=== PATIENT | female | born 1960 | race Caucasian/White ===

== ENCOUNTER → 2024-04-04 10:44 | Outpatient (REF) | payer OTHER, SELFPAY | LOC: RAD 10:44 | PROVIDERS: ATTENDING PHYSICIAN Internal Medicine Cardiovascular Disease; FAMILY PHYSICIAN Family Medicine | DX: R07.9 Chest pain, unspecified (principal); R94.31 Abnormal electrocardiogram [ECG] [EKG] | CPT/HCPCS: 75574; Q9967 ==

== ENCOUNTER 2024-04-04 17:52 | Inpatient (IN) | payer OTHER, SELFPAY ==
[2024-04-04 13:16] VITALS: BP 129/63
[2024-04-04 13:38] VITALS: BP 126/66
[2024-04-04 13:41] LABS: % Basophils 0.9 % (0-2); % Eosinophils 4.7 % (0-6); % Immature Granulocytes 0.3 % (0-0.5); % Lymphocytes 17.5 % (20.5-51.1); % Monocytes 9.3 % (1.7-9.3); % Neutrophils 67.3 % (42.2-75.2); Absolute Basophils 0.1 10^3/uL (0-0.2); Absolute Eosinophils 0.3 10^3/uL (0-0.7); Absolute Lymphocytes 1.2 10^3/uL (1.2-3.4); Absolute Monocytes 0.6 10^3/uL (0.1-0.6); Absolute Neutrophils 4.6 10^3/uL (1.4-6.5); Hematocrit 25.6 % (37.0-47.0); Hemoglobin 7.8 g/dL (12.0-16.0); Mean Corp Hgb Conc. 30.5 g/dL (33.0-37.0); Mean Corpuscular Hgb 21.8 pg (27.0-31.0); Mean Corpuscular Volume 71.5 fL (81.0-99.0); Mean Platelet Volume 9.6 fL (7.4-10.4); Nucleated Red Blood Cells % 0 %; Platelet Count 298 10^3/uL (130-400); Red Blood Cell Count 3.58 10^6/uL (4.20-5.40); Red Cell Dist. Width 18.1 % (11.5-14.5); White Blood Cell Count 6.8 10^3/uL (4.8-10.8)
[2024-04-04 13:43] VITALS: BMI 34.5
[2024-04-04 13:53] LABS: INR 1.02; PT 13.7 Sec (11.4-14.6)
[2024-04-04 13:54] LABS: APTT 25.7 Sec (23.4-35.0)
[2024-04-04 13:57] LABS: ALT (SGPT) 13 U/L (0-35); AST (SGOT) 14 U/L (14-36); Albumin 3.5 g/dl (3.5-5.0); Alkaline Phosphatase 76 U/L (38-126); Blood Urea Nitrogen 15 mg/dl (7-17); Calcium 8.7 mg/dl (8.4-10.2); Carbon Dioxide 28 mmol/L (22-30); Chloride 104 mmol/L (98-107); Estimated Creatinine Clearance 67 ml/min; Glucose 102 mg/dl (70-99); Potassium 4.5 mmol/L (3.5-5.1); Sodium 137 mmol/L (135-145); Total Bilirubin 0.3 mg/dl (0.2-1.3); eGFR > 60.00
--- NOTE | 2024-04-04 13:57 | ED.GENMED ---
History of Present Illness
General
Chief Complaint: Breathing Problem
Source: patient
Time Seen by Provider: 04/04/24 13:39
History of Present Illness
History of Present Illness:
63-year-old female sent to the emergency room from radiology after having a CT of the coronary arteries performed. CT evidently had findings concerning for pulmonary embolism prompting her referral to the emergency room. Patient has been
experiencing shortness of breath with exertion and some chest discomfort over the past few weeks. Symptoms have been worsening. She does at times have pain with deep inspiration. Patient was evaluated by her bicycle mechanic, Dr. Hameed who referred
her for the study. She does not take any anticoagulation. She denies any recent travel or hospital admission. She does experience discomfort in her legs right greater than left. She denies any family history of pulmonary embolism or sudden .
Past History
Past History
ED Past Medical History: HTN, Hypercholesterolemia, NIDDM and Other (Anemia)
Social History
Tobacco: Non-smoker
Family History
Family History: CAD
Phy Exam
Physical Exam
Physical Exam:
General: Awake, Alert, Oriented X3. No acute distress.
Vitals: unremarkable
Head: Atraumatic
Eyes: Pupils equal, EOMI
Throat: Airway intact, no exudates
Neck: Trachea midline
Lungs: Clear and equal b/l
Heart: Regular rate, no murmurs
Abd: Soft, Nontender, No pulsatile mass
Neuro: Nonfocal
Skin: Warm, dry, no rash
Extremities: pulses equal b/l, no edema
Scores
Heart Failure Risk
Heart Failure Risk Score: Not Applicable
Course
Orders/Labs/Results
Orders:
Orders
04/04/24 13:19
Electrocardiogram (*1) Urgent
Reason for Study: Shortness of Breath
EKG- Treatment ONCE
04/04/24 13:23
Complete Blood Count/With Diff Urgent
Comprehensive Metabolic Panel Urgent
Protime/PTT Urgent
Troponin I Urgent
04/04/24 13:48
Echo 2D MMode Color/Doppler Urgent
Reason for Study: Pulmonary Embolism
04/04/24 13:49
US Periph Venous LOWER Ext Joseph Urgent
Comment:
Reason For Exam: b/l leg pain, new PE
04/04/24 14:00
Heparin 7,800 units IV NOW STA
Heparin 12703 Units/250 ml 25,000 units in 250 ml IV PER PROTOCOL
Weight to be used for heparin protocol in kilograms (kg):: 97
Protocol:: DVT/PE
PTT Goal Range to be used:: PTT 73 to 111 seconds
Order type:: Initial
INITIAL Infusion Dose (UNITS/KG/hr) & then follow protocol:: 18 units/kg/hr
Infusion Dose in UNITS/hr & then follow protocol (UNITS/hr):: 1,700
INFUSION RATE in mL/hr & then follow protocol (mL/hr):: 17
For DVT/PE algorithm, re-bolus for low PTT?: Yes
PTT less than or equal to 64 seconds:: Re-bolus 80 units/kg (max 10,000units). Increase by 400 units/hr
(+ 4mL/hr)
PTT 64.1 to 72.9 seconds:: Re-bolus 40 units/kg (max 5,000 units). Increase by 200 units/hr
(+ 2mL/hr)
PTT 73 to 111 seconds:: Target Range. No change in rate.
PTT 111.1 to 130.9 seconds:: Decrease rate by 200 units/hr (- 2 mL/hr)
PTT 131 to 199.9 seconds:: HOLD for 1 hr. Then decrease by 300 units/hr (- 3mL/hr)
PTT greater than or equal to 200 seconds:: HOLD for 2 hrs & Notify Provider. Then decrease by 400 units/hr
(- 4mL/hr)
Lab follow-up:: Each change, PTT q6h until 2 consecutive are therapeutic. Then
PTT daily.
04/04/24 14:02
Type+Screen Urgent
Nursing to Place Non Medication Order As Directed
Physician Order: PTT 6 hours after initial start of Heparin infusion
04/04/24 14:15
ABO2 Urgent
BBK Wristband Number:
Associate notified that ABO2 has been ordered: ATIFF-ER
Date: 04/04/24
Time: 14:16
Armed Security Guard ID: [id number]
04/04/24 14:18
Heparin 7,800 units IV PRN PRN
04/04/24 14:19
Heparin 3,900 units IV PRN PRN
04/04/24 20:30
Protime/PTT Routine
Abnormal Lab Results
04/04/24
13:23
RBC 3.58 L 10^6/uL
(4.20-5.40)
Hgb 7.8 L g/dL
(12.0-16.0)
Hct 25.6 L %
(37.0-47.0)
MCV 71.5 L fL
(81.0-99.0)
MCH 21.8 L pg
(27.0-31.0)
MCHC 30.5 L g/dL
(33.0-37.0)
RDW 18.1 H %
(11.5-14.5)
Lymphocytes % 17.5 L %
(20.5-51.1)
Glucose 102 H mg/dl
(70-99)
Total Protein 6.0 L g/dl
(6.3-8.2)
04/04/24 13:23
04/04/24 13:23
Vital Signs
Initial and Last Documented VS:
Initial Vital Signs
Temp Pulse Resp BP Pulse Ox
97.6 F 67 18 129/63 98
04/04/24 13:16 04/04/24 13:16 04/04/24 13:16 04/04/24 13:16 04/04/24 13:16
Last Documented Vital Signs
Temp Pulse Resp BP Pulse Ox
97.6 F 67 18 129/63 98
04/04/24 13:16 04/04/24 13:16 04/04/24 13:16 04/04/24 13:16 04/04/24 13:16
MDM/Problems Addressed
Differential Diagnosis Includes:
PE, DVT, right heart strain
MDM/Problems Addressed:
Patient presents with shortness of breath on exertion that has been worsening over time. Patient had an outpatient CT coronary angiogram. The preliminary report was called to the patient stating that she has pulmonary embolism. On arrival here to
the emergency the patient hemodynamically stable. She is not hypoxic. She does not appear to have any indication for intervention. IV heparin started. I ordered an echocardiogram and DVT studies. Case discussed with pulmonary who agrees that
the patient would not be a candidate for any intervention and agrees with the plan thus far. Patient's hemoglobin noted to be 7.8. She does have a history of anemia. She denies any melanotic or bloody stools or any other source of bleeding.
*Radiology
Radiology exam reviewed: radiology read reviewed
*Pulse Oximetry
Patient hypoxic: no
*EKG
Interpreted by ED Provider?: Yes
Interpretation: normal
Heart Rate: 67
Rate: normal
Rhythm: sinus
[place]: normal axis
Interval: normal interval
QRS Pattern: normal QRS
Ischemia: no ischemia
*Geography Teacher Interpretation
Rate: normal
Interpretation: normal
Heart Rate: 67
Rhythm: sinus
*Critical Care Note
Total Time (30-74mins, 75-104mins- exclusive of procedures): 32 min
ED Attending Note
-
Portions of this chart may have been created with voice recognition software.� Occasional wrong word or��sound alike� substitutions may have occurred due to the inherent limitations of voice recognition software.
Discharge Plan
Departure
Patient Disposition: Admit
Date of Disposition: 04/04/24
Time of Disposition: 14:17
Admit to: Med/Surg
Presentation/result/management discussed w/ accepting MD/DO: Hospitalist
Condition: Fair
Discharge Problem:
Pulmonary embolism
Prescriptions:
No Action
lamotrigine 150 mg tablet
300 mg PO DAILY
atorvastatin 80 mg tablet
80 mg PO QPM
atenolol 25 mg tablet
25 mg PO DAILY
prochlorperazine maleate 10 mg tablet
10 mg PO TIDPRN PRN (Reason: nausea/vomiting)
hydrocodone-acetaminophen 10-325 mg tablet
1 tab PO Q6HPRN PRN (Reason: moderate pain)
omeprazole 40 mg capsule,delayed release(DR/EC)
40 mg PO BID
zolmitriptan 5 mg tablet
5 mg PO USEASDIRECTD PRN (Reason: headache)
Rx Instructions:
take 1 tablet by mouth AT ONSET OF HEADACHE may repeat in 2 hours
cyproheptadine 4 mg tablet
4 mg PO DAILY
trazodone 150 mg tablet
150 mg PO HS
gabapentin 300 mg capsule
300 mg PO Q12H
montelukast 10 mg tablet
10 mg PO QPM
zolpidem 10 mg tablet
10 mg PO HSPRN PRN (Reason: sleep)
levothyroxine 112 mcg tablet
112 mcg PO DAILY
bupropion HCl 300 mg tablet extended release 24 hr
300 mg PO DAILY
levocetirizine 5 mg tablet
5 mg PO QPM
venlafaxine 225 mg tablet extended release 24hr
225 mg PO DAILY
Mounjaro 12.5 mg/0.5 mL pen injector
12.5 mg SC DE LA TORRE@1800
Referrals:
Darnell Roque, [Family Provider] -
Interventions
Interventions:
*Risk Screen - Suicide Last Done: 04/04/24 13:16
*General Assessment Last Done: 04/04/24 13:16
*Neglect/Abuse Screening Last Done: 04/04/24 13:16
*ED COVID-19 Vaccine History Last Done: 04/04/24 13:16
Discharge Date and Time
Print Language: SAMI
[2024-04-04 14:00] VITALS: BP 108/59
[2024-04-04 14:03] LABS: Troponin I < 0.012 ng/ml
[2024-04-04 14:30] VITALS: BP 115/57
[2024-04-04] MEDS: HEPARIN 25000 UNITS/250 ML IV (14:34)
[2024-04-04] MEDS: HEPARIN 7800 UNITS IV (14:35)
--- NOTE | 2024-04-04 17:43 | HPS.HSE ---
Addendum entered and electronically signed by Dillon Juan MD 04/04/24 22:56:
Attending Addendum-
I performed a history and physical exam of the patient and discussed his management with the resident. I reviewed the resident's note and agree with the documented findings and plan of care CC/HPI- Sent to ED s/p coronary angio ct with saddle PE.
Patient admits to chest heaviness and worsening SOB over a month. Denies fevers palps immobility syncope travel. Full 12 point ROS reviewed and negative except as documented Exam-vitals reviewed in EMR GEN-NAD heart RRR no M/R/G lungs decreased at
bases abd soft LE trace b/l LE edema neg Paez warm well perfused +2 distal pulses
Plan:
# PE/ Right LE DVT
-sPESI-low risk
-echo-. Left ventricle: Normal size and function with an estimated ejection fraction of 55-60% by visual estimation. Mild concentric LVH. Right ventricle: Normal size and function
-LE US- There is nonocclusive deep venous thrombosis in the right popliteal and superficial femoral veins
-CT angio/cardiac-Saddle pulmonary thromboembolus.
-cont heparin gtt monitor ptt
-transition to Eliquis in am loading 10/bid x 7 days then 5/bid
-f/u with kick boxer as OP for full workup due to unprovoked clots and family history
# Iron Deficiency Anemia
- tx for hb < 7
- severe IV iron allergy
# HTN- cont atenolol
# HLD- cont atorva
# Depression- cont buproprion venlafaxine trazodone
# Peripheral Neuropathy- cont gabapentin
# Migraine cont cyproheptadine and lamotrigine
# Hypothyroid- cont levothyroxine
# GERD- cont omeprazole
# Insomnia- cont Ambien
Dispo DC home in am
ACP
Patient consented to discuss, was alone, time spent explanation of advance directives, changes in health status, patient�s health care wishes if the patient becomes unable to make health decisions, goals of care, code status, and prognosis- 16
minutes
Time spent coordinating care, review of plan of care with resident, personally reviewed previous records in EMR, med rec, labs, radiology, d/w nursing, family total time documented is exclusive of any additional time listed that was spent in advance
care planning discussion -� 76 minutes
Original Note:
Family Physician
-
Family Physician: Darnell Roque
Inspector Eyeglass Frames: Dr. Christianson
Chief Complaint
-
Pulmonary emboli detected on outpatient coronary CT scan
History of Present Illness
Patient is a 63-year-old female without prior history of DVT or PE, who is here after outpatient coronary CT angio incidentally detected filling defect in the left and right main pulmonary arteries with a saddle configuration compatible with
thromboembolus. Coronary CT angio was recommended by her motor coach bus driver as part of the workup for recent shortness of breath, which was thought to be possibly cardiac-related. Patient mentions shortness of breath on exertion from about almost a
month ago and having chest discomfort described as heaviness. Chest discomfort is not related to breathing per patient. Also states chronic leg pain from years ago, however, mentions she did notice ankle swelling few days ago. Patient is taking
care of her parents and is physically active.
Most recent surgery was in February 2022 (lumbar fusion). Does not report any long flights/ travels. The most recent flight was to [place] in November which was less than 2 hours. Postmenopausal.
Positive history of DVTs in her mother.
Past medical history: Migraines, neuropathy, postmenopausal flushing, anxiety/depression, iron deficiency anemia, hyperlipidemia, essential hypertension, GERD, hypothyroidism, obesity
Past surgical history: Lumbar fusion surgery (03/16), tonsillectomy (many years ago)
Medical History
Past Medical History
Past Medical History: Reports Other (see HPI)
Additional Past Medical History:
see HPI
Past Surgical History: Reports Other (see HPI)
Additional Past Surgical History:
see HPI
Social History
Tobacco: Non-smoker
Alcohol: None
Drug: None
Personal: Single
Living: With Family (Lives with parents)
Family History
Family History: Other (Positive history of DVT in mother)
Allergies / Home Medications
Allergies reflects when Allergies were last updated in [facility].
Home Medications with original date entered in [facility]
Allergy/Medication List:
Allergies
Allergy/AdvReac Type Severity Reaction Status Date / Time
Penicillins Allergy Unknown Verified 04/04/24 13:19
Sulfa (Sulfonamide Allergy Unknown Verified 04/04/24 13:19
Antibiotics)
Home Medications
atenolol 25 mg tablet 25 mg PO DAILY 04/04/24
atorvastatin 80 mg tablet 80 mg PO QPM 04/04/24
bupropion HCl 300 mg 24 hr tablet, extended release 300 mg PO DAILY 04/04/24
cyproheptadine 4 mg tablet 4 mg PO DAILY 04/04/24
gabapentin 300 mg capsule 300 mg PO Q12H 04/04/24
hydrocodone 10 mg-acetaminophen 325 mg tablet 1 tab PO Q6HPRN PRN moderate pain 04/04/24
lamotrigine 150 mg tablet 300 mg PO DAILY 04/04/24
levocetirizine 5 mg tablet 5 mg PO QPM 04/04/24
levothyroxine 112 mcg tablet 112 mcg PO DAILY 04/04/24
montelukast 10 mg tablet 10 mg PO QPM 04/04/24
omeprazole 40 mg capsule,delayed release 40 mg PO BID 04/04/24
prochlorperazine maleate 10 mg tablet 10 mg PO TIDPRN PRN nausea/vomiting 04/04/24
tirzepatide 12.5 mg/0.5 mL subcutaneous pen injector (Mounjaro) 12.5 mg SC DE LA TORRE@1800 04/04/24
trazodone 150 mg tablet 150 mg PO HS 04/04/24
venlafaxine 225 mg tablet,extended release 24 hr 225 mg PO DAILY 04/04/24
zolmitriptan 5 mg tablet 5 mg PO USEASDIRECTD PRN headache 04/04/24
zolpidem 10 mg tablet 10 mg PO HSPRN PRN sleep 04/04/24
Review of Systems
-
History Source: Patient
A 12 point ROS was completed and negative except as noted: Yes
Constitutional: Denies Fatigue
Respiratory: Reports Trouble Breathing (Mildly dyspneic); Denies Cough or Hemoptysis
Cardiac: Reports Other (Intermittent chest discomfort); Denies Diaphoresis or Palpitations
Physical Exam
Vital Signs
Vital Signs
Temp Pulse Resp BP Pulse Ox
97.6 F 71 18 115/57 96
04/04/24 13:16 04/04/24 17:00 04/04/24 17:00 04/04/24 14:30 04/04/24 17:00
Physical Exam
General: Well Developed, No Apparent Distress and Comfortable
HEENT: NormoCephalic, Anicteric, Moist mucous membranes and Other (Appears pale)
Respiratory: Clear and Non Labored Respirations; No Rales, Rhonchi or Crackles
Cardiac: S1/S2, Regular Rhythm and Peripheral Edema (1+ pitting edema (R>L)); No Tachycardia, Murmur or JVD
GI: Soft, Non Tender, Non Distended and Normal Bowel Sounds
Musculoskeletal: No Clubbing, No Cyanosis, Edema, Left Lower Extremity and Edema, Right Lower Extremity
Skin: Warm and Dry
Neuro: Awake, Alert, Oriented and AO x 3
Psych: Calm
Laboratory Results
-
04/04/24 13:23
04/04/24 13:23
Laboratory Results
PT 13.7 Sec (11.4-14.6) 04/04/24 13:23
INR 1.02 04/04/24 13:23
APTT Cancelled 04/04/24 14:02
Total Bilirubin 0.3 mg/dl (0.2-1.3) 04/04/24 13:23
AST 14 U/L (14-36) 04/04/24 13:23
ALT 13 U/L (0-35) 04/04/24 13:23
Alkaline Phosphatase 76 U/L (38-126) 04/04/24 13:23
Troponin I < 0.012 ng/ml 04/04/24 13:23
Impression/Plan
-
63-year-old male with saddle pulmonary thromboembolus detected on outpatient coronary CT angiogram.
# Unprovoked saddle pulmonary thromboemboli
- CT angiography (04/04): Filling defect in the left and right main pulmonary arteries with a saddle configuration compatible with thromboembolus. Some extension of thrombus into the bilateral lobar branches. No secondary findings to indicate right
heart strain.
-Unprovoked, possibly hereditary hypercoagulability given positive family history
-Hemodynamically stable
-EKG: Normal sinus rhythm, no ST changes
-Echo (04/04):
1. Left ventricle: Normal size and function with an estimated ejection
fraction of 55-60% by visual estimation. Mild concentric LVH.
2. Right ventricle: Normal size and function
3. Mitral valve: Trace mitral regurgitation
4. Aortic valve: Trace aortic insufficiency
5. Tricuspid valve: Trace tricuspid regurgitation with estimated pulmonary
artery systolic pressures of 25-30 mmHg
- Lower extremity ultrasound: There is nonocclusive deep venous thrombosis in the right popliteal and superficial femoral veins
-Troponin negative
-LFT normal
-PESI score: class I , very low risk (0-1.6% of 30-day mortality)
-Heparin drip started in ED
-Admit to telemetry
-Consulted case management regarding Eliquis pricing-will transition from heparin to Eliquis once we have this information
-Maintain SpO2 more than 90% at all times
-Supplemental O2 with SpO2 less than 90
-EKG as needed if patient develops worsening chest pain
-IV fluid if SBP less than 90
-Pulmonary service notified by ED
# History of iron deficiency anemia
-Patient reports receiving IV iron infusion in the past; however she developed hives and discontinued iron treatment
-Patient mentions she has undergone colonoscopy and endoscopy in the past with no evidence of GI bleeding
-Will continue to monitor hemoglobin
-Transfuse blood if Hgb<7
# History of GERD
-Continue omeprazole
# History of migraine
-Continue home meds
# Essential hypertension
-Continue home atenolol
# Hyperlipidemia
-Continue atorvastatin 80
# Hypothyroidism
-Continue home levothyroxine
# Anxiety/depression
-Continue home meds
CODE STATUS
DNR
[2024-04-04] MEDS: NEURONTIN 300 MG PO (19:35)
[2024-04-04] MEDS: PROTONIX 40 MG PO (19:35)
[2024-04-04] MEDS: LIPITOR 80 MG PO (19:35)
[2024-04-04] MEDS: SINGULAIR 10 MG PO (19:35)
[2024-04-04 20:40] VITALS: BP 127/71
[2024-04-04 20:43] VITALS: BMI 32.1
[2024-04-04 22:17] LABS: INR 1.14; PT 14.9 Sec (11.4-14.6)
[2024-04-04 22:33] LABS: APTT > 200 Sec (23.4-35.0)
[2024-04-04] MEDS: DESYREL 150 MG PO (22:44)
[2024-04-04] MEDS: AMBIEN 10 MG PO (23:44)
[2024-04-05 03:38] VITALS: BP 112/55
--- NOTE | 2024-04-05 05:03 | PTCARENOTE ---
Patient arrived on unit @2019 via stretcher from ED, ambulate to bed with standby assist. Patient AAOx3, no c/o pain or discomfort. VS WNL, +1 edema to RLE. Skin assessment completed, call bryant within reach, oriented to unit. Heparin gtt
transfusing, @2240 SPORTS STATISTICIAN made aware of PTT result >200, protocol followed.
[2024-04-05] MEDS: SYNTHROID 112 MCG PO (05:47)
[2024-04-05] MEDS: NEURONTIN 300 MG PO (05:47)
[2024-04-05 06:58] LABS: Hematocrit 26.8 % (37.0-47.0); Hemoglobin 8.2 g/dL (12.0-16.0); Mean Corp Hgb Conc. 30.6 g/dL (33.0-37.0); Mean Corpuscular Hgb 21.5 pg (27.0-31.0); Mean Corpuscular Volume 70.2 fL (81.0-99.0); Mean Platelet Volume 9.4 fL (7.4-10.4); Platelet Count 282 10^3/uL (130-400); Red Blood Cell Count 3.82 10^6/uL (4.20-5.40); Red Cell Dist. Width 18.4 % (11.5-14.5)
[2024-04-05 07:09] LABS: INR 1.06; PT 14.1 Sec (11.4-14.6)
[2024-04-05 07:16] LABS: NT-proBNP 750 pg/ml
[2024-04-05 07:52] VITALS: BP 142/79
[2024-04-05 08:27] LABS: ALT (SGPT) 13 U/L (0-35); AST (SGOT) 15 U/L (14-36); Albumin 3.8 g/dl (3.5-5.0); Alkaline Phosphatase 90 U/L (38-126); Blood Urea Nitrogen 13 mg/dl (7-17); Calcium 9.1 mg/dl (8.4-10.2); Carbon Dioxide 24 mmol/L (22-30); Chloride 106 mmol/L (98-107); Estimated Creatinine Clearance 71 ml/min; Glucose 99 mg/dl (70-99); Sodium 139 mmol/L (135-145); Total Bilirubin 0.6 mg/dl (0.2-1.3); Total Protein 6.2 g/dl (6.3-8.2); eGFR > 60.00
[2024-04-05] MEDS: TENORMIN 25 MG PO ×2 (09:17→09:22)
[2024-04-05] MEDS: WELLBUTRIN XL (24 hour extended release) 300 MG PO (09:17)
[2024-04-05] MEDS: PERIACTIN 4 MG PO (09:17)
[2024-04-05] MEDS: ELIQUIS 10 MG PO (09:21)
[2024-04-05] MEDS: PROTONIX 40 MG PO (09:22)
[2024-04-05] MEDS: LAMICTAL 300 MG PO (09:22)
[2024-04-05] MEDS: EFFEXOR XR 225 MG PO (09:22)
[2024-04-05 11:45] VITALS: BP 130/62
--- NOTE | 2024-04-05 15:03 | CM ---
Alert awake oriented patient who lives with her parents.She is health care marketing manager of parents. They live in an apartment with with elevator.
She is independent in driving and in all activities of daily living.Offered VN she declined.Checked butler of Eliquis =$13.00 MD notified. Pt given Eliquis coupon.
No adaptive devices
Never had VN/[facility]
Pharmacy [facility]
PCP Dr Roque
PLAN Home no needs
[2024-04-05 15:24] VITALS: BP 124/60
--- NOTE | 2024-04-05 16:06 | W.PN.HOSP.TC ---
Addendum entered and electronically signed by Dillon Juan MD 04/05/24 22:57:
Attending Addendum-
I saw and evaluated the patient. I reviewed the resident�s note and agree with findings and plan as documented in the resident�s note SUB: had episode of cheast haviness last PM resolved on its own. no further episodes. No palps SOB resolved. Full
12 point ROS reviewed and negative except as documented Exam-vitals reviewed in EMR GEN-NAD heart RRR no M/R/G lungs decreased at bases abd soft LE trace b/l LE edema neg Paez warm well perfused +2 distal pulses
Plan:
# PE/ Right LE DVT
-sPESI-low risk
-echo-. Left ventricle: Normal size and function with an estimated ejection fraction of 55-60% by visual estimation. Mild concentric LVH. Right ventricle: Normal size and function
-LE US- There is nonocclusive deep venous thrombosis in the right popliteal and superficial femoral veins
-CT angio/cardiac-Saddle pulmonary thromboembolus.
-transition hep gtt to Eliquis
-f/u with physics instructor as OP for full workup due to unprovoked clots and family history
# Iron Deficiency Anemia
- tx for hb < 7
- severe IV iron allergy
# HTN- cont atenolol
# HLD- cont atorva
# Depression- cont buproprion venlafaxine trazodone
# Peripheral Neuropathy- cont gabapentin
# Migraine cont cyproheptadine and lamotrigine
# Hypothyroid- cont levothyroxine
# GERD- cont omeprazole
# Insomnia- cont Ambien
Dispo DC home in am
Time spent coordinating care, DC planning, review of DC plan of care with resident, transition of care, review of records, med rec/scripts sent electronically, consults, notes, d/w consultants, nursing, family, and CM eliquis priced� 32 mins
Original Note:
Today's Communication/Plan
-
Discharge to home on Eliquis
10 mg twice daily for the first 5 days
5 mg twice daily for the next 3 months
Assessment / Plan
Assessment / Plan
63-year-old male with saddle pulmonary thromboembolus detected on outpatient coronary CT angiogram.
# Unprovoked saddle pulmonary thromboemboli
- CT angiography (04/04): Filling defect in the left and right main pulmonary arteries with a saddle configuration compatible with thromboembolus. Some extension of thrombus into the bilateral lobar branches. No secondary findings to indicate right
heart strain.
-Unprovoked, possibly hereditary hypercoagulability given positive family history
-Hemodynamically stable
-EKG: Normal sinus rhythm, no ST changes
-Echo (04/04):
1. Left ventricle: Normal size and function with an estimated ejection
fraction of 55-60% by visual estimation. Mild concentric LVH.
2. Right ventricle: Normal size and function
3. Mitral valve: Trace mitral regurgitation
4. Aortic valve: Trace aortic insufficiency
5. Tricuspid valve: Trace tricuspid regurgitation with estimated pulmonary
artery systolic pressures of 25-30 mmHg
- Lower extremity ultrasound: There is nonocclusive deep venous thrombosis in the right popliteal and superficial femoral veins
-Troponin negative
-LFT normal
-PESI score: class I , very low risk (0-1.6% of 30-day mortality)
-Heparin drip started in ED
-Consulted case management regarding Eliquis pricing-cost is $13 every month
-Patient was started on Eliquis 10mg BID this morning-will need to continue for another 3 months after discharge
-Supplemental O2 with SpO2 less than 90
-EKG as needed if patient develops worsening chest pain
-IV fluid if SBP less than 90
-Pulmonary service notified by ED
# History of iron deficiency anemia
-Patient reports receiving IV iron infusion in the past; however she developed hives and discontinued iron treatment
-Patient mentions she has undergone colonoscopy and endoscopy in the past with no evidence of GI bleeding
-Improving - Will continue to monitor hemoglobin
-Transfuse blood if Hgb<7
# History of GERD
-Continue omeprazole
# History of migraine
-Continue home meds
# Essential hypertension
-Continue home atenolol
# Hyperlipidemia
-Continue atorvastatin 80
# Hypothyroidism
-Continue home levothyroxine
# Anxiety/depression
-Continue home meds
CODE STATUS
DNR
Vitals have been stable for the past 24 hours. Patient is medically stable for discharge on Eliis.
Anticipated Discharge: Today
Subjective/Interval History
-
Date of Service: April 05, 2024
Reports short interval of chest heaviness that quickly resolved after changing positions and rolling in bed.
Did not become short of breath. Vitals remained stable throughout the night and this morning. Does not offer any complaints.
Objective Data
-
Labs:
Laboratory Results
04/05/24 04/05/24
06:45 06:45
WBC 7.0
Hgb 8.2 L
Hct 26.8 L
Plt Count 282
PT 14.1
INR 1.06
APTT 60.0 H Pending
Sodium 139
Potassium 4.0
Chloride 106
Carbon Dioxide 24
BUN 13
Creatinine 0.9
Glucose 99
Calcium 9.1
Total Bilirubin 0.6
AST 15
ALT 13
Alkaline Phosphatase 90
Vital Signs:
Vital Signs
Temp Pulse Resp BP Pulse Ox
98.8 F 74 16 124/60 95
04/05/24 15:24 04/05/24 15:24 04/05/24 15:24 04/05/24 15:24 04/05/24 15:24
Review of Systems
-
History Source: Patient
All other systems: Reviewed and negative
Respiratory: Denies Trouble Breathing
Cardiac: Reports Other (Reports chest heaviness for very short interval last night-did not become short of breath-chest pain resolved after rolling in bed and changing positions); Denies Chest Pain, Palpitations or Orthopnea
Physical Exam
-
General: Well Developed, No Apparent Distress and Comfortable
HEENT: Normocephalic, Atraumatic and Moist Mucous Membranes
Respiratory: Clear to Auscultation and Non Labored Respirations
Cardiac: Regular Rhythm and S1/S2; Negative Murmur, Rub, Calf Tenderness or Gallop
GI: Soft, Nontender, Nondistended and Normal Bowel Sounds; Negative Organomegaly
Musculoskeletal: No Clubbing, No Cyanosis and Edema, Right Lower Extrem (1+ pitting edema )
Skin: Negative Rash
Neuro: Nonfocal/Grossly Intact
Psych: Calm
--- NOTE | 2024-04-05 17:45 | W.DCSUMMARY ---
Addendum entered and electronically signed by Dillon Juan MD 04/05/24 22:58:
Read, reviewed, and agree. See same day progress note for additional details.
Delfino Juan MD
Original Note:
Documented by User: Pastor Garcia MD, Resident 04/05/24 18:05
Discharge Summary
Discharge Data
Date of Admission: 04/04/24
Date of Discharge: 04/05/24
-
Pending Results: No
Hospital Course
Discharging Physician : Dr. Juan
Disposition : Home
Primary care physician : Darnell Roque
Principal Discharge diagnosis : RLE DVT, saddle pulmonary thromboemboli
Chronic Discharge diagnosis : Iron deficiency anemia, GERD, Essential hypertension, Hyperlipidemia, Hypothyroidism, Anxiety/depression, Migraine
Hospital Course : Patient is a 63-year-old female without prior history of DVT or PE, who was referred to ED after outpatient coronary CT angio incidentally detected filling defect in the left and right main pulmonary arteries with a saddle
configuration compatible with thromboembolus. Coronary CT angio was recommended by her homebound teacher as part of the workup for recent shortness of breath, which was thought to be more likely cardiac-related. Patient mentioned shortness of breath on
exertion from about almost a month ago and having chest discomfort described as heaviness. Also stated chronic leg pain from years ago, however, mentioned she did notice right ankle swelling few days before admission. Most recent surgery was in
February 2022 (lumbar fusion) and there was no history of long flights/ travels. She is postmenopausal and was not taking contraceptive pills. Physically active. Positive history of DVTs in her mother.
Patient was hemodynamically stable in ED. Troponin was negative and LFTs normal. She was immediately started on heparin drip. EKG unremarkable with normal sinus rhythm. Echo was done while in ED and did not show any signs of right heart strain
with normal EF and pulmonary systolic pressure. Also, lower extremity ultrasound was done in ED which showed nonocclusive deep venous thrombosis in the right popliteal and superficial femoral vein. Based on PESI score, patient had 0-1.6% of 30-day
mortality. Patient was admitted to telemetry. Heparin drip was transitioned to Eliquis next morning at 8:30 AM. Case management was consulted regarding pricing of Eliquis.
Chronic conditions were managed as prior to admission.
Today, patient is medically stable for discharge. Eliquis butler is reasonable for patient. She has been advised to take Eliquis 10 mg twice daily for the next 5 days with the next dose being at 8:30 PM today and to take Eliquis 5 mg twice daily
for the next 3 months, thereafter.
Important imaging findings :
Cardiac CT Angiography (04/04)
Filling defect in the left and right main pulmonary arteries with a saddle configuration compatible with thromboembolus. Some extension of thrombus into the bilateral lobar branches. No secondary findings to indicate right heart strain. Mild
bilateral subsegmental atelectasis. The imaged lungs are otherwise clear. The central airways are patent.
Minimal calcified plaque ostial and mid LAD.
Moderate mid and moderate to severe distal plaques in the LAD.
Minimal proximal calcified plaque in the diagonal branch.
Calcium score of 239.81 consistent with moderate plaque burden.
US Periph Venous LOWER Ext Joseph (04/04)
There is nonocclusive deep venous thrombosis in the right popliteal and superficial femoral veins
Echo (04/04):
1. Left ventricle: Normal size and function with an estimated ejection
fraction of 55-60% by visual estimation. Mild concentric LVH.
2. Right ventricle: Normal size and function
3. Mitral valve: Trace mitral regurgitation
4. Aortic valve: Trace aortic insufficiency
5. Tricuspid valve: Trace tricuspid regurgitation with estimated pulmonary
artery systolic pressures of 25-30 mmHg
Discharge Plan
-
Patient Disposition: Home (Routine Discharge)
Discharge Diagnosis/Procedures: RLE DVT, saddle pulmonary thromboemboli
Condition: Good
Diet: As tolerated, Regular and Low Sodium
Activity: As tolerated
Additional Activity: Encourage being ambulatory
Driving Restrictions: As prior to admission
Bathing Restrictions: None
Instructions: Pulmonary embolism - Discharge instructions
Referrals:
Darnell Roque, DO [Family Provider] - in less than 1 week
Prescriptions:
New
Eliquis 5 mg tablet
10 mg PO BID 5 Days Qty: 18 0RF
Rx Instructions:
10mg every 12hours for first 5 days. Next dose is 8:30pm.
Eliquis 5 mg tablet
5 mg PO BID 30 Days Qty: 60 0RF
Rx Instructions:
On day 6, take 5mg every 12 hours for another 3 months.
Continued
lamotrigine 150 mg tablet
300 mg PO DAILY
atorvastatin 80 mg tablet
80 mg PO QPM
atenolol 25 mg tablet
25 mg PO DAILY
prochlorperazine maleate 10 mg tablet
10 mg PO TIDPRN PRN (Reason: nausea/vomiting)
hydrocodone-acetaminophen 10-325 mg tablet
1 tab PO Q6HPRN PRN (Reason: moderate pain)
omeprazole 40 mg capsule,delayed release(DR/EC)
40 mg PO BID
zolmitriptan 5 mg tablet
5 mg PO USEASDIRECTD PRN (Reason: headache)
Rx Instructions:
take 1 tablet by mouth AT ONSET OF HEADACHE may repeat in 2 hours
cyproheptadine 4 mg tablet
4 mg PO DAILY
trazodone 150 mg tablet
150 mg PO HS
gabapentin 300 mg capsule
300 mg PO Q12H
montelukast 10 mg tablet
10 mg PO QPM
zolpidem 10 mg tablet
10 mg PO HSPRN PRN (Reason: sleep)
levothyroxine 112 mcg tablet
112 mcg PO DAILY
bupropion HCl 300 mg tablet extended release 24 hr
300 mg PO DAILY
levocetirizine 5 mg tablet
5 mg PO QPM
venlafaxine 225 mg tablet extended release 24hr
225 mg PO DAILY
Mounjaro 12.5 mg/0.5 mL pen injector
12.5 mg SC DE LA TORRE@1800
Discharge Orders:
Discharge Patient (As Directed); Ordered 04/05/24
Ordered By: Pastor Garcia
Discharge Date and Time
Discharge Date/Time: 04/05/24 15:49
Print Language: STATELESS

Documented by User: Dillon Juan MD 04/05/24 22:54
Discharge Summary
Discharge Data
Date of Admission: 04/04/24
Date of Discharge: 04/05/24
Discharge Plan
-
Patient Disposition: Home (Routine Discharge)
Discharge Diagnosis/Procedures: RLE DVT, saddle pulmonary thromboemboli
Condition: Good
Diet: As tolerated, Regular and Low Sodium
Activity: As tolerated
Additional Activity: Encourage being ambulatory
Driving Restrictions: As prior to admission
Bathing Restrictions: None
Instructions: Pulmonary embolism - Discharge instructions
Referrals:
Darnell Roque, [Family Provider] - in less than 1 week
Prescriptions:
New
Eliquis 5 mg tablet
10 mg PO BID 5 Days Qty: 18 0RF
Rx Instructions:
10mg every 12hours for first 5 days. Next dose is 8:30pm.
Eliquis 5 mg tablet
5 mg PO BID 30 Days Qty: 60 0RF
Rx Instructions:
On day 6, take 5mg every 12 hours for another 3 months.
Continued
lamotrigine 150 mg tablet
300 mg PO DAILY
atorvastatin 80 mg tablet
80 mg PO QPM
atenolol 25 mg tablet
25 mg PO DAILY
prochlorperazine maleate 10 mg tablet
10 mg PO TIDPRN PRN (Reason: nausea/vomiting)
hydrocodone-acetaminophen 10-325 mg tablet
1 tab PO Q6HPRN PRN (Reason: moderate pain)
omeprazole 40 mg capsule,delayed release(DR/EC)
40 mg PO BID
zolmitriptan 5 mg tablet
5 mg PO USEASDIRECTD PRN (Reason: headache)
Rx Instructions:
take 1 tablet by mouth AT ONSET OF HEADACHE may repeat in 2 hours
cyproheptadine 4 mg tablet
4 mg PO DAILY
trazodone 150 mg tablet
150 mg PO HS
gabapentin 300 mg capsule
300 mg PO Q12H
montelukast 10 mg tablet
10 mg PO QPM
zolpidem 10 mg tablet
10 mg PO HSPRN PRN (Reason: sleep)
levothyroxine 112 mcg tablet
112 mcg PO DAILY
bupropion HCl 300 mg tablet extended release 24 hr
300 mg PO DAILY
levocetirizine 5 mg tablet
5 mg PO QPM
venlafaxine 225 mg tablet extended release 24hr
225 mg PO DAILY
Mounjaro 12.5 mg/0.5 mL pen injector
12.5 mg SC DE LA TORRE@1800
Discharge Orders:
Discharge Patient (As Directed); Ordered 04/05/24
Ordered By: Pastor Garcia
Discharge Date and Time
Discharge Date/Time: 04/05/24 15:49
Print Language: STATELESS
== END 2024-04-05 15:49 | disposition home or self-care (01) | DRG 299 ==
LOC: 3 WEST ACU 17:52
PROVIDERS: Student in an Organized Health Care Education/Training Program; ADMITTING PHYSICIAN Family Medicine; EMERGENCY PHYSICIAN Emergency Medicine; FAMILY PHYSICIAN Family Medicine
DX: I82.431 Acute embolism and thrombosis of right popliteal vein (principal); I26.99 Other pulmonary embolism without acute cor pulmonale; J98.11 Atelectasis; D50.9 Iron deficiency anemia, unspecified; I11.9 Hypertensive heart disease without heart failure; F32.A Depression, unspecified; E11.40 Type 2 diabetes mellitus with diabetic neuropathy, unspecified; G43.909 Migraine, unspecified, not intractable, without status migrainosus; E03.9 Hypothyroidism, unspecified; K21.9 Gastro-esophageal reflux disease without esophagitis; G47.00 Insomnia, unspecified; E78.00 Pure hypercholesterolemia, unspecified; Z66 Do not resuscitate; Z79.01 Long term (current) use of anticoagulants; Z82.49 Family history of ischemic heart disease and other diseases of the circulatory system; Z86.711 Personal history of pulmonary embolism
CPT/HCPCS: 80053; 83880; 84484; 85025; 85027; 85610; 85730; 86850; 86900; 86901; 93005; 93306; 93970; 96374; 96376; 99291